=== PATIENT | male | born 1995 | race African-American/Black ===

== ENCOUNTER 2018-11-18 18:16 | Emergency (ER) | payer OTHER ==
[2018-11-18] MEDS ORDERED: SOD CHLORIDE 0.9% 100 ML IV (18:53)
[2018-11-18] MEDS: LIDOCAINE/MYLANTA 40 ML BTL PO (19:23)
[2018-11-18] MEDS: FAMOTIDINE 20 MG INJ IV (19:23)
[2018-11-18 19:26] LABS: ADD MAN DIFF? NO
[2018-11-18 19:37] LABS: BASOPHILS % 0.5 % (0.0-2.0); EOSINOPHILS # 0.4 10^3/ul (0.0-0.5); EOSINOPHILS % 5.8 % (0.0-7.0); HEMATOCRIT 47.7 % (42.0-52.0); HEMOGLOBIN 15.7 g/dl (14.0-18.0); LYMPHOCYTES # 2.9 10^3/ul (0.8-2.9); LYMPHOCYTES % 46.8 % (15.0-51.0); MEAN CORPUSCULAR HGB CONC 32.9 g/dl (32.0-37.0); MEAN PLATELET VOLUME 10.4 fl (7.4-10.4); MONOCYTE # 0.7 10^3/ul (0.3-0.9); MONOCYTES % 10.7 % (0.0-11.0); NEUTROPHIL # 2.2 10^3/ul (1.6-7.5); PLATELET COUNT 267 10^3/UL (140-415); RED BLOOD COUNT 5.61 10^6/ul (4.70-6.10)
[2018-11-18 19:37] LABS: WHITE BLOOD COUNT 6.2 10^3/ul (4.8-10.8)
[2018-11-18] MEDS: SOD CHLORIDE 0.9% 1,000 ML IV (19:38)
[2018-11-18 19:48] LABS: ALANINE AMINOTRANSFERASE 68 IU/L (13-69); ALBUMIN 4.8 g/dl (3.3-4.9); ALBUMIN/GLOBULIN RATIO 1.37; ALKALINE PHOSPHATASE 93 IU/L (42-121); AMYLASE 125 U/L (11-123); ANION GAP 10 (5-13); ASPARTATE AMINO TRANSFERASE 109 IU/L (15-46); BILIRUBIN,INDIRECT 0.4 mg/dl (0-1.1); BILIRUBIN,TOTAL 0.4 mg/dl (0.2-1.3); BLOOD UREA NITROGEN 14 mg/dl (7-20); CALCIUM 10.4 mg/dl (8.4-10.2); CARBON DIOXIDE 29 mmol/L (21-31); CHLORIDE 102 mmol/L (97-110); CREATININE 1.24 mg/dl (0.61-1.24); Estimated GFR > 60 mL/min (>60); GLUCOSE 94 mg/dl (70-220); LIPASE 76 U/L (23-300); POTASSIUM 4.3 mmol/L (3.5-5.1); SODIUM 141 mmol/L (135-144); TOTAL PROTEIN 8.3 g/dl (6.1-8.1)
[2018-11-18 20:31] LABS: OCCULT BLOOD STOOL NEGATIVE (NEGATIVE)
== END 2018-11-18 21:01 | disposition home or self-care (01) ==
LOC: FTE 18:16
DX: K21.9 Gastro-esophageal reflux disease without esophagitis (principal); K59.00 Constipation, unspecified
CPT/HCPCS: 36415; 80053; 82150; 82270; 83690; 85025; 96361; 96374; 99284-25

== ENCOUNTER 2018-12-27 10:29 | Emergency (ER) | payer OTHER ==
[2018-12-27] MEDS: LIDOCAINE 1% (MPF) 5 ML VIAL INJ (10:52)
[2018-12-27] MEDS: DIPHTH/TET/ACEL PERTUSS (ADULT) 0.5 ML VIAL IM* (11:56)
== END 2018-12-27 11:47 | disposition home or self-care (01) ==
LOC: FTE 10:29
DX: S81.811A Laceration without foreign body, right lower leg, initial encounter (principal); W22.8XXA Striking against or struck by other objects, initial encounter; Y92.9 Unspecified place or not applicable
CPT/HCPCS: 12001; 90715; 99282-25

== ENCOUNTER 2019-01-03 18:09 | Emergency (ER) | payer OTHER | END 2019-01-03 19:22 | disposition home or self-care (01) | LOC: E/R 18:09 | DX: Z48.01 Encounter for change or removal of surgical wound dressing (principal) | CPT/HCPCS: 99281; Z7502 ==